=== PATIENT | male | born 1975 | race Two or more races ===

== ENCOUNTER 2023-08-24 11:17 | Inpatient (IN) | payer OTHER ==
[2023-08-24 12:14] VITALS: BMI 26.3
[2023-08-24] MEDS ORDERED: IBUPROFEN 400 MG TABLET (FP) PO PRN (15:33)
[2023-08-24] MEDS ORDERED: ACETAMINOPHEN 325 MG TABLET (FP) PO PRN (15:33)
[2023-08-24] MEDS ORDERED: MAGNESIUM HYDROX 2400MG/30ML ORAL SUSPENSION 30 ML CUP PO PRN (15:33)
[2023-08-24] MEDS ORDERED: P-EPHED 60MG/TRIPROLIDI 2.5MG TABLET PO PRN (15:33)
[2023-08-24] MEDS ORDERED: BENZONATATE 200 MG CAPSULE PO PRN (15:33)
[2023-08-24] MEDS ORDERED: BENZOCAINE/MENTHOL (CHLORASEPTIC ) LOZENGE MM PRN (15:33)
[2023-08-24] MEDS ORDERED: MAG HYDROX/AL HYDROX/SIMETH 30 ML UNIT-DOSE CUP PO PRN (15:33)
[2023-08-24] MEDS ORDERED: DOCUSATE SODIUM 100 MG CAPSULE (FP) PO PRN (15:33)
[2023-08-24] MEDS ORDERED: LOPERAMIDE HCL 2 MG CAPSULE PO PRN (15:33)
[2023-08-24] MEDS ORDERED: guaiFENesin 600 MG TABLET.ER (FP) PO PRN (15:33)
[2023-08-24] MEDS ORDERED: POLYETHYLENE GLYCOL (HEALTHYLAX) 3350 17 GM PACKET PO PRN (15:33)
[2023-08-24] MEDS ORDERED: TUBERCULIN PPD 5 TU/0.1ML VIAL ID ONE (19:39)
[2023-08-24] MEDS: TUBERCULIN PPD 5 TU/0.1ML SYRINGE (IN PATIENT USE ONLY) ID ONE (19:47)
[2023-08-24] MEDS: MELATONIN 5 MG TABLETS PO SCH (21:22)
[2023-08-24] MEDS: THIAMINE HCL 100 MG TABLET (FP) PO SCH (21:22)
[2023-08-25] MEDS: PRENATAL VITAMINS W/ FOLIC ACID TABLET (FP) PO SCH (09:55)
[2023-08-25 11:21] LABS: URINE APPEARANCE CLEAR; URINE BILIRUBIN NEGATIVE (NEGATIVE); URINE COLOR YELLOW; URINE GLUCOSE (UA) NEGATIVE (NEGATIVE); URINE KETONE NEGATIVE (NEGATIVE); URINE LEUK ESTERASE NEGATIVE (NEGATIVE); URINE NITRITE NEGATIVE (NEGATIVE); URINE PROTEIN NEGATIVE (NEGATIVE)
[2023-08-25 11:23] LABS: CHLORIDE 105 mmol/L (98-107); POTASSIUM 4.5 mmol/L (3.5-5.1); SODIUM 138 mmol/L (136-145)
[2023-08-25 11:27] LABS: HEMATOCRIT 42.6 % (35.4-49); HEMOGLOBIN 13.8 GM/dL (11.7-16.9); MCH 27.1 pg (25.7-33.7); MCHC 32.5 g/dl (32.0-35.9); MEAN CELL VOLUME 83.4 fl (80-96); MEAN PLT VOLUME 7.3 fl (7.5-11.1); PLATELET COUNT 436 10^3/uL (134-434); RBC 5.11 M/mm3 (4.00-5.60); RDW 15.7 % (11.9-15.9); WHITE BLOOD COUNT 4.8 K/mm3 (4.0-10.0)
[2023-08-25 11:42] LABS: CALCIUM 9.5 mg/dL (8.5-10.1)
[2023-08-25 11:43] LABS: ALBUMIN 3.4 g/dl (3.4-5.0); ANION GAP 6 mmol/L (4-13); BLOOD UREA NITROGEN 15.6 mg/dL (7-18); CO2 28 mmol/L (21-32); GLUCOSE,RANDOM 81 mg/dL (74-106)
[2023-08-25 11:46] LABS: SGOT/AST 25 U/L (15-37); SGPT/ALT 27 U/L (13-61)
[2023-08-25 11:47] LABS: BILIRUBIN,TOTAL 0.5 mg/dL (0.2-1); TOT PROT 6.7 g/dl (6.4-8.2)
[2023-08-25 11:48] LABS: ALK PHOS 78 U/L (45-117)
[2023-08-25 11:58] LABS: SYPHILIS W/ RPR CONF NON-REACTIVE (NONREACTIVE)
[2023-08-25 12:28] LABS: HIV INTERPRETATION NEGATIVE (NEGATIVE)
[2023-08-25] MEDS: ARIPiprazole 10 MG TABLET PO SCH (13:20)
[2023-08-25] MEDS: DIVALPROEX SODIUM 500 MG TABLET E.C. PO SCH (13:20)
[2023-08-25] MEDS: PNEUMOC 20-VAL CONJ-DIP CRM/PF 0.5 ML SYRINGE IM ONE (13:20)
[2023-08-28] MEDS: hydrOXYzine PAMOATE 25 MG CAPSULE (FP) PO PRN (20:16)
[2023-08-28] MEDS: BACLOFEN 10 MG TABLET (FP) PO SCH (21:17)
[2023-08-29] MEDS: NALTREXONE HCL 50 MG TABLET PO SCH (10:04)
[2023-08-29] MEDS: DIVALPROEX SODIUM 500 MG TABLET E.C. PO SCH (21:12)
[2023-08-30] MEDS: LISINOPRIL 10 MG TABLET PO SCH (15:05)
[2023-09-01] MEDS: IBUPROFEN 600 MG TABLET (FP) PO PRN (12:12)
[2023-09-16] MEDS: NICOTINE POLACRILEX 2 MG LOZENGE BC PRN (10:30)
[2023-09-19] MEDS: NALTREXONE MICROSPHERES (VIVITROL) 380 MG DISP.SYRIN IM ONE (10:52)
[2023-09-20] MEDS: NALTREXONE MICROSPHERES (VIVITROL) 380 MG DISP.SYRIN IM ONE (11:06)
[2023-09-21 07:42] VITALS: RESP 17; TEMP 97.5
[2023-09-21 09:10] VITALS: BP 125/74; PULSE 70
== END 2023-09-21 09:41 | disposition home or self-care (01) | DRG 772 ==
LOC: YASAS 11:17 → Y3W 18:00
PROVIDERS: ADMIT Allergy & Immunology; ATTEND Psychiatry & Neurology Pain Medicine
PROC: HZ42ZZZ Group Counseling for Substance Abuse Treatment, Cognitive-Behavioral (ICD-10-PCS; principal; 2023-08-24)
DX: F10.20 Alcohol dependence, uncomplicated (principal); F12.10 Cannabis abuse, uncomplicated; F20.0 Paranoid schizophrenia; F31.9 Bipolar disorder, unspecified; I10 Essential (primary) hypertension; M62.838 Other muscle spasm; M13.842 Other specified arthritis, left hand; Z62.810 Personal history of physical and sexual abuse in childhood
CPT/HCPCS: 36415; 80053; 80164; 80307; 81003; 85027; 86780; 86803; 87389; 87635; 87811; 90677; J0475; J2315